=== PATIENT | female | born 1980 | race Two or more races ===

== ENCOUNTER 2021-11-09 08:44 | Emergency (ER) | payer OTHER ==
[~2021-11-09] VITALS: Ht 160 cm; Wt 61.2 kg
[2021-11-09 08:52] VITALS: BP 133/84
[2021-11-09 10:48] LABS: COVID AG,FIA SOURCE NASOPHARYNGEAL
[2021-11-09] MEDS ORDERED: OXYM30SP27 NASAL (12:17)
== END 2021-11-09 12:26 | disposition home or self-care (01) ==
LOC: EMS 09:00
DX: J06.9 Acute upper respiratory infection, unspecified (principal); Z20.822 Contact with and (suspected) exposure to COVID-19
CPT/HCPCS: 99283